=== PATIENT | male | born 1945 | race Caucasian/White ===

== ENCOUNTER → 2024-09-23 | Outpatient (REF) | payer MEDICARE ==
[~2024-09-23] MED LIST: AMIO200T10 PO; AMLO1TAB24 PO; ASPI81CH49 PO; COUM2.5T17 PO; CRES20TA2 PO; FLEXERIL PO; LISI40TA52 PO; METO100T5 PO; MILK120011 PO; POTA20IN2 PO; ROXI1TAB2 PO; SENN-225 PO; TAMS0.4C2 PO; TORS20TA2 PO; WARF-18 PO; WARF-23 PO
== END ==
LOC: M LAB REF 16:46
PROVIDERS: ATTEND Nurse Practitioner Family
DX: R30.0 Dysuria (principal)